=== PATIENT | female | born 1945 | race Caucasian/White ===

== ENCOUNTER 2022-04-14 02:03 | Emergency (ER) | payer OTHER ==
[~2022-04-14] VITALS: Ht 152.4 cm; Wt 59.1 kg
[2022-04-14 02:15] VITALS: BP 140/60
[2022-04-14] MEDS ORDERED: HYDR25TA PO (02:23)
[2022-04-14] MEDS ORDERED: ATOR40TA71 PO (02:23)
[2022-04-14] MEDS ORDERED: ASPI-1444 PO (02:23)
[2022-04-14] MEDS ORDERED: INSLAN SQ (02:23)
[2022-04-14] MEDS ORDERED: CHOL10002 PO (02:23)
[2022-04-14] MEDS ORDERED: CALC-462 PO (02:23)
[2022-04-14] MEDS ORDERED: INSNOV SQ (02:23)
[2022-04-14] MEDS ORDERED: SITA1TAB6 PO (02:23)
[2022-04-14] MEDS ORDERED: LISI20TA24 PO (02:23)
[2022-04-14] MEDS ORDERED: CALC-1124 PO (02:23)
== END 2022-04-14 04:39 | disposition home or self-care (01) ==
LOC: EMS 02:09
DX: K06.8 Other specified disorders of gingiva and edentulous alveolar ridge (principal); E11.9 Type 2 diabetes mellitus without complications; E78.00 Pure hypercholesterolemia, unspecified; I10 Essential (primary) hypertension
CPT/HCPCS: 99281; Z7502